=== PATIENT | female | born 1950 | race Caucasian/White ===

== ENCOUNTER 2020-12-14 20:32 | Inpatient (IN) | payer MEDICAID ==
[~2020-12-14] VITALS: Ht 149.9 cm; Wt 51.7 kg
[2020-12-14 20:32] VITALS: BP 101/48
--- NOTE | 2020-12-14 20:32 | NUR ---
RECEIVED IN BED 10 VIA AMBULANCE/ ALS FROM [facility] WITH C/O RESPIRATORY DISTRESS AND INCREASED HR. PT VENTILATED PER AMBU BAG VIA TRACH. UPON ARRIVAL ATTACHED TO VENT WITH PREVIOUS SETTIONGS. FI02 100%, VT 400 CC PEEP 8 CM. SUCTIONED LARGE AMOUNT TENACIOUS SPUTUM. SKIN IS COOL PALE AND DIAPHORETIC. G-TUBE NOTED MID ABDOMEN. BILATERAL FOOT DROP NOTED. ATTACHED TO CM = ST
--- NOTE | 2020-12-14 20:32 | NUR ---
PT JENN ALS. TAKEN TO BED 10
[2020-12-14] MEDS ORDERED: NACL 0.9% 1,000 ML IV SCH (20:35)
[2020-12-14] MEDS ORDERED: cefTRIAXone 1,000 MG in DEXT 5% MINI-BAG PLUS 50 ML IV ONE (20:35)
--- NOTE | 2020-12-14 20:52 | NUR ---
SABINO SWAB (COVID) COMPLETED. GIVEN TO LAB.
--- NOTE | 2020-12-14 21:00 | NUR ---
PT PLACED ON VENT W/ SETTINGS PROVIDED BY EMT/FACILITY OF AC/ 400 +8 f14 100%. PT HAS PATENT PORTEX 7 TRACH WHICH IS SECURED. VENT ALARMS ON & AUDIBLE, VENT PLUGGED INTO RED OUTLET, AND AMBU AT BEDSIDE WILL CONTINUE TO MONITOR Addendum: 12/14/20 at 2114 by CRISAA BEKAH JORGENSENDY SECRET/PLUGS WERE ALSO ASPIRATED FROM PT.
[2020-12-14 21:19] LABS: APPEARANCE,URINE CLOUDY (CLEAR); BILIRUBIN,URINE NEGATIVE (NEGATIVE); BLOOD, URINE 2+ (NEGATIVE); COLOR,URINE YELLOW (YELLOW); LEUKOCYTE ESTERASE ,URINE 3+ (NEGATIVE); NITRITE, URINE NEGATIVE (NEGATIVE); UGLUCOSE NEGATIVE (NEGATIVE)
--- NOTE | 2020-12-14 21:30 | NUR ---
LABS DRAWN AND COMPLETED.
[2020-12-14 21:32] LABS: WBC,URINE 20-60 /HPF (0-5); YEAST,URINE Moderate /HPF (None Seen)
[2020-12-14 21:33] LABS: CALCIUM OXALATE CRYSTALS,UR 0-5 /HPF (None Seen); URINE AMORPHOUS URATE 1+ /HPF (None Seen)
[2020-12-14] MEDS ORDERED: METO-485 GT/PO (21:44)
[2020-12-14] MEDS ORDERED: SCOP1PAT TP (21:44)
[2020-12-14] MEDS ORDERED: MAGN400S60 GT/PO (21:44)
[2020-12-14] MEDS ORDERED: METO25TA GT/PO (21:44)
[2020-12-14] MEDS ORDERED: ASCO-786 GT/PO (21:44)
[2020-12-14] MEDS ORDERED: ONDA4TAB GT/PO (21:44)
[2020-12-14] MEDS ORDERED: MELA3TER PO (21:44)
[2020-12-14] MEDS ORDERED: COL100L GT (21:44)
[2020-12-14] MEDS ORDERED: ZINC50TA76 PO (21:44)
[2020-12-14 21:52] LABS: BASOPHILS # (AUTO) 0.1 K/uL (0.00-0.22); BASOPHILS % (AUTO) 0.6 % (0.0-2.0); EOSINOPHILS # (AUTO) 0.4 K/uL (0-0.4); EOSINOPHILS % (AUTO) 2.8 % (0.0-4.0); HEMATOCRIT 31.5 % (36-48); LYMPHOCYTES # (AUTO) 2.3 K/uL (2.5-16.5); LYMPHOCYTES % (AUTO) 16.3 % (20.5-51.1); MEAN CORPUSCULAR HEMOGLOBIN 27 pg (27-31); MEAN CORPUSCULAR HGB CONC 32 g/dL (33-37); MEAN CORPUSCULAR VOLUME 84.1 fL (80-94); MONOCYTES # (AUTO) 1.2 K/uL (0.8-1.0); MONOCYTES % (AUTO) 8.4 % (1.7-9.3); NEUTROPHILS # (AUTO) 10.3 K/uL (1.8-7.7); NEUTROPHILS % (AUTO) 71.9 % (42.2-75.2); PLATELET COUNT (AUTO) 462 K/uL (140-450); RED BLOOD CELL COUNT(AUTO) 3.74 MIL/uL (4.20-5.40); RED CELL DISTRIBUTION WIDTH 17.3 % (11.6-13.7); WHITE BLOOD COUNT (AUTO) 14.4 K/uL (4.8-10.8)
--- NOTE | 2020-12-14 21:55 | NUR ---
SPOKE WITH SON ( CHANTELL ) [phone]
[2020-12-14 22:04] LABS: ALBUMIN 3.2 g/dL (3.4-5.0); CARBON DIOXIDE 35.3 mmol/L (21-32); CREATININE 0.9 mg/dL (0.6-1.3); POTASSIUM 4.3 mmol/L (3.5-5.1); TOTAL BILIRUBIN 0.2 mg/dL (0.0-1.0)
[2020-12-14] MEDS ORDERED: cefTRIAXone 1,000 MG VIAL ONE (22:04)
--- NOTE | 2020-12-14 22:10 | NUR ---
PT. APPEARANCE CHANGE, WITH DECREASED ALERTNESS. RESPIRATIONS APPEAR LABORED. PT. IS COOL AND DIAPHORETIC.
--- NOTE | 2020-12-14 22:14 | NUR ---
Respiratory Therapist at bedside for respiratory intervention.
[2020-12-14] MEDS ORDERED: FLUCONAZOLE 100 MG TAB GT SCH (22:35)
[2020-12-14] MEDS ORDERED: AZITHROMYCIN 250 MG in DEXTROSE 5% 250 ML IV SCH (23:00)
--- NOTE | 2020-12-14 23:00 | NUR ---
FAMILY AT BEDSIDE.
[2020-12-15] VITALS (7 sets, daily range): BP systolic 111–129; BP diastolic 54–68
--- NOTE | 2020-12-15 00:10 | NUR ---
PT. DAUGHTER LUIS SHRESTHA ([phone]) ASKED TO BE UPDATED IF ANY CHANGES WITH PT. CONDITION.
[2020-12-15] MEDS ORDERED: AZITHROMYCIN 500 MG INJ VIAL IV ONE (00:12)
[2020-12-15] MEDS: NACL 0.9% 1,000 ML IV SCH ×4 (00:56→09:31)
--- NOTE | 2020-12-15 02:00 | NUR ---
RT AT BEDSIDE.
--- NOTE | 2020-12-15 05:00 | NUR ---
PT. LAYING COMFORTABLY IN BED. BREATHING EVEN AND UNLABORED.
--- NOTE | 2020-12-15 05:15 | NUR ---
DELAY IN ADMINISTERING FLUIDS DUE TO PT. MOVING ARM CONSTRICTING FLOW OF FLUIDS.
--- NOTE | 2020-12-15 06:59 | NUR ---
KIERSTEN/RN NOCS NOTIFIED OF FIO2 CHANGE TO 40%
--- NOTE | 2020-12-15 06:59 | NUR ---
PATIENT CURRENTLY IN ED-10 TELEMETRY HOLD RECEIVED ON A [employer] R860 VENTILATOR PLUGGED INTO RED OUTLET TOLERATING WELL WITHOUT ANY ADVERSE REACTIONS NOTED AT THIS TIME TO A PORTEX DCT #7 AIRWAY SECURED WITH A PORTEX TRACH TIE CUFF PRESSURE CHECKED NOTED AMBU BAG AT BEDSIDE LOC ASLEEP RESTING COMFORTABLY EQUAL CHEST RISE AIRWAY PATENT SATURATION 100% ON FIO2 OF 50% PEEP 5cmH2O TITRATED FIO2 TO 40% KIERSTEN/RN NOCS NOTIFED OF FIO2 CHANGE
--- NOTE | 2020-12-15 07:15 | NUR ---
SPOKE WITH CHANTELL (SON) FOR UPDATE ON PT.
--- NOTE | 2020-12-15 07:16 | NUR ---
Report and continuation of care received from PARAS Mathew.
--- NOTE | 2020-12-15 07:16 | NUR ---
GIVEN REPORT TO PARAS CARSON. Transfer of care at this time.
--- NOTE | 2020-12-15 07:30 | NUR ---
Patient resting in position of comfort with both eyes closed. monitoring manager remains in place. Respirations even/unlabored at this time. Bed locked in lowest position, side rails x 2, call light in reach.
--- NOTE | 2020-12-15 07:48 | NUR ---
Spoke with Francesco over phone and provided room #. Requested for bag inspector to contact him when patient is situated in new room.
--- NOTE | 2020-12-15 08:00 | NUR ---
Report given to PARAS Han.
--- NOTE | 2020-12-15 08:09 | NUR ---
TRANSFERRED TO [facility] 124-B REMOVED FROM VENTILATOR PLACED ON SUPPLEMENTAL OXYGEN VIA E-TANK AT 15 LPM (PSI ADEQUATE FOR TRANSFER) TO AMBU BAG/HME/INLINE SUCTION CATHETER/TRACHEOSTOMY TUBE BAG DEPRESSION EVERY 6-8 SECONDS TOLERATED TRANSFER WELL WITHOUT COMPLICATIONS SATURATION 100% HR 96
--- NOTE | 2020-12-15 08:15 | NUR ---
Patient will be admitted to care of Dr. Gordon. Admited to Telemetry. Will go to room 124-B. Belongings list completed. Report to PARAS Han.
--- NOTE | 2020-12-15 08:15 | NUR ---
PT ARRIVED ON UNIT .
--- NOTE | 2020-12-15 09:06 | NUR ---
STABLE EQUAL CHEST RISE AIRWAY PATENT SATURATION 100% ON FIO2 OF 40% PEEP 5cmH2O DECREASED FIO2 TO 30% ISMA/RN NOTIFIED
--- NOTE | 2020-12-15 09:23 | NUR ---
PATIENT HAS BEEN SCREENED AND CATEGORIZED HIGH NUTRITION RISK. PATIENT WILL BE SEEN WITHIN 1-2 DAYS OF ADMISSION. 12/15/20-12/16/[address]
[2020-12-15] MEDS ORDERED: MAG SULF 2000 MG/WATER PREMIX 50 ML IV PRN (09:25)
[2020-12-15] MEDS ORDERED: ACETAMINOPHEN 325 MG TAB PO PRN (09:25)
[2020-12-15] MEDS ORDERED: LORazepam 2 MG/ML VIAL IM/IVP PRN (09:25)
[2020-12-15] MEDS ORDERED: HYDROcodone/APAP 5/325 MG 1 TAB TAB PO PRN (09:25)
[2020-12-15] MEDS ORDERED: DOCUSATE SODIUM 100 MG GELCAP PO PRN (09:25)
[2020-12-15] MEDS ORDERED: MORPHINE SULFATE 2 MG/ML SYR IVP PRN (09:25)
[2020-12-15] MEDS ORDERED: METOCLOPRAMIDE 10 MG TAB GT SCH (09:25)
[2020-12-15] MEDS ORDERED: ONDANSETRON 4 MG/2 ML VIAL IM/IVP PRN (09:25)
[2020-12-15] MEDS ORDERED: POTASSIUM CHLORIDE 20% 40 MEQ/15 ML UDC PO PRN (09:25)
--- NOTE | 2020-12-15 09:26 | NUR ---
MEDICATIONS GIVEN PER MD ORDER. PT EDUCATED AND NODDED UNDERSTANDING. PT REFUSED TELEPHOTO INSTALLER. PT ORIENTED TO ROOM AND HOSPITAL RULES. PT NODDED UNDERSTANDING. CALL LIGHT WITHIN REACH
[2020-12-15] MEDS ORDERED: MAGNESIUM HYDROXIDE 2400 MG/30 ML UDC GT SCH (09:57)
[2020-12-15] MEDS ORDERED: METOPROLOL 50 MG TAB GT SCH (09:58)
[2020-12-15] MEDS ORDERED: ASCORBIC ACID 500 MG TAB PO SCH (10:05)
[2020-12-15] MEDS ORDERED: ZINC SULF 220 MG CAP PO SCH (10:15)
[2020-12-15 10:38] LABS: BASOPHILS # (AUTO) 0.1 K/uL (0.00-0.22); BASOPHILS % (AUTO) 0.7 % (0.0-2.0); EOSINOPHILS # (AUTO) 0.6 K/uL (0-0.4); EOSINOPHILS % (AUTO) 3.7 % (0.0-4.0); HEMATOCRIT 24.9 % (36-48); HEMOGLOBIN 7.9 g/dL (12.0-16.0); LYMPHOCYTES # (AUTO) 3.2 K/uL (2.5-16.5); LYMPHOCYTES % (AUTO) 20.9 % (20.5-51.1); MEAN CORPUSCULAR HEMOGLOBIN 27 pg (27-31); MEAN CORPUSCULAR HGB CONC 32 g/dL (33-37); MEAN CORPUSCULAR VOLUME 83.9 fL (80-94); MONOCYTES % (AUTO) 6.9 % (1.7-9.3); NEUTROPHILS # (AUTO) 10.3 K/uL (1.8-7.7); NEUTROPHILS % (AUTO) 67.8 % (42.2-75.2); PLATELET COUNT (AUTO) 313 K/uL (140-450); RED BLOOD CELL COUNT(AUTO) 2.97 MIL/uL (4.20-5.40); RED CELL DISTRIBUTION WIDTH 16.7 % (11.6-13.7); WHITE BLOOD COUNT (AUTO) 15.2 K/uL (4.8-10.8)
[2020-12-15 10:56] LABS: PROTHROMBIN TIME 10.2 secs (10.8-13.4)
[2020-12-15] MEDS ORDERED: SCOPOLAMINE 1.5 MG/72 HR PATCH TD SCH (11:00)
[2020-12-15 11:01] LABS: ALBUMIN 2.6 g/dL (3.4-5.0); CARBON DIOXIDE 28.7 mmol/L (21-32); CHOL/HDL RATIO 5.4 (1-4.5); CREATININE 0.8 mg/dL (0.6-1.3); MAGNESIUM 1.8 mg/dL (1.8-2.4); PHOSPHORUS 2.8 mg/dL (2.5-4.9); THYROID STIMULATING HORMONE 0.78 uIU/mL (0.34-3.74); TOTAL BILIRUBIN 0.2 mg/dL (0.0-1.0)
--- NOTE | 2020-12-15 11:08 | NUR ---
SON CHANTELL CALLED REGARDING MOTHERS CARE. HE STATES HE DOES NOT WANT MOTHER GIVEN SEDATION MEDICATION.
[2020-12-15 11:13] LABS: ANION GAP 10.9 (8-16); POTASSIUM 3.6 mmol/L (3.5-5.1)
--- NOTE | 2020-12-15 11:58 | NUR ---
PT. WITH LOW BROWN SCALE AT RISK, MAD TO BUTTOCKS AND PERINEAL , SKIN RED, INTACT CONTINUE TO FOLLOW PRESSURE INJURY PREVENTION INTERVENTIONS. -APPLY Z GUARD TO BUTTOCKS AND PERINEAL BID AND PRN IF SOILING -TURN AND REPOSITION PATIENT Q 2H -ASSESS AND MONITOR SKIN CONDITION DURING POSITION CHANGE -OFFLOAD BILATERAL HEELS BY PLACING PILLOWS UNDER CALVES AT ALL TIMES, UNLESS OTHERWISE CONTRAINDICATED -PRESSURE REDISTRIBUTION BY PLACING PILLOWS AND OFFLOADING SACRALCOCCYX -KEEP SKIN CLEAN AND DRY AT ALL TIMES.
[2020-12-15] MEDS ORDERED: ONDANSETRON 4 MG TAB GT SCH (12:00)
--- NOTE | 2020-12-15 13:00 | NUR ---
PT GOT DIET ORDER. JEVITY 1.2 AT 60, 200 FLUSH Q 6
--- NOTE | 2020-12-15 13:04 | NUR ---
RECEIVED FNS REFERRAL FOR TUBE FEEDING.
--- NOTE | 2020-12-15 13:26 | NUR ---
STABLE RESPONSIVE GOOD CHEST RISE DEEP TRACHEAL SUCTION FOR LARGE SEMI THICK BARRIENTOS SECRETIONS AIRWAY PATENT SPUTUM CULTURE OBTAINED
[2020-12-15] MEDS ORDERED: NON-FORMULARY ITEM (Melatonin (Melatonin) 1 TAB) PO SCH (17:00)
[2020-12-15] MEDS: MELATONIN 3 MG TAB PO SCH (17:20)
--- NOTE | 2020-12-15 17:22 | NUR ---
MEDICATIONS GIVEN PER MD ORDER. PT EDUCATED AND NODDED. TALKED TO FAMILY MEMBER.
--- NOTE | 2020-12-15 17:36 | NUR ---
STABLE NO EVIDENCE OF PULMONARY DISTRESS NOTED EQUAL CHEST RISE AIRWAY PATENT
--- NOTE | 2020-12-15 17:58 | NUR ---
PT RESTING IN BED . NO S/S OF DISTRESS AT THIS TIME
--- NOTE | 2020-12-15 19:05 | NUR ---
PT ENDORSED TO E LEARNING DESIGNER RN. PT STABLE
[2020-12-15] MEDS ORDERED: VANCOMYCIN PER PHARMACY MC PRN (19:15)
--- NOTE | 2020-12-15 19:15 | NUR ---
RECEIVED BEDSIDE REPORT FROM DAY SHIFT NURSE FOR CONTINUITY OF CARE. PT IS AWAKE AND ALERT. RESPONDING APPROPRIATELY TO QUESTIONS BY NODDING. PT IS MOHAWK SPEAKING. TRACH TO VENT WITH NO RESPIRATORY DISTRESS NOTED. VENT SETTINGS; FIO2 24%, PEEP 5, VT 400, RT 14. BREATHING IS UNLABORED. SR ON TELE MONITORING. G TUBE FEEDING RUNNING JEVITY 1.2 AT 60 ML PER HOUR PER ORDER WITH WATER FLUSHES. SKIN IS WARM, DRY, AND INTACT. IV IS IN THE RIGHT AC 20 GAUGE AND LEFT AC 18 GAUGE RUNNING NS AT 60 ML PER HOUR PER ORDER. PT IS STABLE AT THIS TIME. PLAN OF CARE DISCUSSED.
[2020-12-15] MEDS: METOPROLOL 50 MG TAB GT SCH (20:12)
[2020-12-15] MEDS ORDERED: VANCOMYCIN 1GM/DEXT 5% PREMIX 200 ML IV SCH (21:00)
[2020-12-15] MEDS ORDERED: ZOLPIDEM 5 MG TAB PO PRN (21:00)
[2020-12-15] MEDS ORDERED: VANCOMYCIN 1,000 MG VIAL ONE (21:25)
--- NOTE | 2020-12-15 21:30 | NUR ---
PT IS AWAKE AND ALERT. ON TRACH TO VENT WITH BREATHING UNLABORED. PT WAS REPOSITIONED AND PILLOWS PLACED UNDERNEATH EXTREMITIES TO OFFSET PRESSURE. IV FLUIDS ARE INFUSING ORDERED. ORAL CARE WAS PROVIDED. PT TOLERATED THIS WELL. G TUBE RESIDUAL IS LESS THAN 5 ML. PT TOLERATING FEEDING WELL. WILL CONTINUE TO MONITOR.
--- NOTE | 2020-12-15 23:30 | NUR ---
PT ASLEEP. TRACH TO VENT WITH O2 SAT AT 99%. NO RESPIRATORY DISTRESS NOTED. NO COUGHING OR SOB. NO PAIN NOTED AT THIS TIME. PT IS STABLE.
[2020-12-16] VITALS: BP 115/61
[2020-12-16] MEDS ORDERED: PIPERACILLIN/TAZOBACTAM 3.375 GM VIAL IV ONE ×2 (00:21→05:27)
[2020-12-16] MEDS: NACL 0.9% 1,000 ML IV SCH ×2 (00:24→18:34)
[2020-12-16] MEDS: PIPERACILLIN/TAZOBACTAM 3.375 GM in DEXTROSE 5% 50 ML IV SCH ×5 (00:24→23:21)
--- NOTE | 2020-12-16 01:22 | NUR ---
PT IS AWAKE AND COUGHING. PT WAS SUCTIONED THROUGH TRACH. WHITE, PINK TINGED SECRETIONS WERE EXPELLED, SMALL IN AMOUNT. PT TOLERATED THIS WELL. O2 SAT IS 98%. PT IS STABLE. NO DISTRESS NOTED.
--- NOTE | 2020-12-16 03:00 | NUR ---
PT IS ASLEEP. NO RESPIRATORY DISTRESS NOTED. BREATHING IS UNLABORED ON TRACH TO VENT. IV FLUIDS ARE INFUSING. G TUBE RESIDUAL IS LESS THAN 5 ML. HOWELL CATH IS INTACT AND DRAINING YELLOW, CLEAR URINE. WILL CONTINUE TO MONITOR.
[2020-12-16 04:00] VITALS: BP 106/56
--- NOTE | 2020-12-16 04:05 | NUR ---
RT AT BEDSIDE PROVIDING TRACH CARE. PT TOLERATING THE CHANGING WELL. NO RESPIRATORY DISTRESS NOTED. O2 SAT IS 99%. PT IS STABLE.
--- NOTE | 2020-12-16 04:25 | NUR ---
DECK SPECIALIST, PRABHJOT, AT BEDSIDE DRAWING MORNING LABS.
--- NOTE | 2020-12-16 04:43 | NUR ---
PT REMAINS ON VENT WITH PORTEX 7 TRACH SECURED. TRACH CARE HAS BEEN COMPLETED. NO CHANGES HAVE BEEN MADE TO VENT AND REMAINS ON SETTINGS RECEIVED ON AC/VC 400 +5, f14 24%. VENT ALARMS REMAIN ON AND AUDIBLE W/ AMBU AT BEDSIDE. VENT REMAINS PLUGGED INTO RED OUTLET. WILL CONTINUE TO MONITOR AND ENDORSE TO DAY SHIFT
--- NOTE | 2020-12-16 05:32 | NUR ---
ZOSYN ABX STARTED. MEDICATION EDUCATION WAS PROVIDED. BREATHING IS UNLABORED ON TRACH TO VENT. O2 SAT IS 98%. PT IS STABLE.
[2020-12-16 05:34] LABS: BASOPHILS # (AUTO) 0.1 K/uL (0.00-0.22); BASOPHILS % (AUTO) 0.9 % (0.0-2.0); EOSINOPHILS # (AUTO) 0.5 K/uL (0-0.4); EOSINOPHILS % (AUTO) 4.8 % (0.0-4.0); HEMATOCRIT 23.2 % (36-48); HEMOGLOBIN 7.6 g/dL (12.0-16.0); LYMPHOCYTES % (AUTO) 27.7 % (20.5-51.1); MEAN CORPUSCULAR HEMOGLOBIN 27 pg (27-31); MEAN CORPUSCULAR HGB CONC 33 g/dL (33-37); MEAN CORPUSCULAR VOLUME 82.8 fL (80-94); MONOCYTES # (AUTO) 0.9 K/uL (0.8-1.0); MONOCYTES % (AUTO) 8.4 % (1.7-9.3); NEUTROPHILS # (AUTO) 6.3 K/uL (1.8-7.7); NEUTROPHILS % (AUTO) 58.2 % (42.2-75.2); PLATELET COUNT (AUTO) 279 K/uL (140-450); RED BLOOD CELL COUNT(AUTO) 2.81 MIL/uL (4.20-5.40); RED CELL DISTRIBUTION WIDTH 17.2 % (11.6-13.7); WHITE BLOOD COUNT (AUTO) 10.8 K/uL (4.8-10.8)
[2020-12-16 05:35] LABS: ANION GAP 8.4 (8-16); CARBON DIOXIDE 28.3 mmol/L (21-32); CREATININE 0.8 mg/dL (0.6-1.3); POTASSIUM 3.7 mmol/L (3.5-5.1)
[2020-12-16 05:39] LABS: MAGNESIUM 1.8 mg/dL (1.8-2.4); PHOSPHORUS 2.5 mg/dL (2.5-4.9)
--- NOTE | 2020-12-16 07:10 | NUR ---
ENDORSED PT TO DAY SHIFT NURSE FOR CONTINUITY OF CARE. PT IS AWAKE AND ALERT AT THIS TIME. O2 SAT IS 99%. PT IS STABLE. PLAN OF CARE DISCUSSED.
--- NOTE | 2020-12-16 07:14 | NUR ---
RECEIVED REPORT FROM NIGHT NURSE PATIENT IS AAOX2-3, TRACH TO VENT FIO2 24, TV 400, PEEP 5, RATE 14, TUBE FEEDING JEVITY 1.2 AT 60 MLS/HR 200 Q6H WATER FLUSH, SKIN INTACT WITH INCONTINENT DERMATITIS AND IV INTACT ON LEFT AC AND RIGHT AC. WITH BILATERAL HEEL PROTECT. SAFETY MEASURES IN PLACE AND CALL LIGHT WITHIN REACH. WILL CONTINUE TO MONITOR.
[2020-12-16 08:00] VITALS: BP 132/46
[2020-12-16] MEDS: DOCUSATE 100 MG/10 ML UDC GT SCH (08:15)
[2020-12-16] MEDS: METOPROLOL 50 MG TAB GT SCH ×2 (08:15→20:35)
[2020-12-16] MEDS: ZINC SULF 220 MG CAP PO SCH (08:15)
[2020-12-16] MEDS: ASCORBIC ACID 500 MG TAB PO SCH (08:15)
[2020-12-16] MEDS: MAGNESIUM HYDROXIDE 2400 MG/30 ML UDC GT SCH (08:16)
--- NOTE | 2020-12-16 08:26 | NUR ---
MEDICATION DUE GIVEN CHECK VITAL SIGNS PRIOR TO MEDICATION BP 132/46 NC 86 NO RESIDUAL VOLUME PT TOLERATED WELL AND PATIENT IS CALM AND ALERT. NO DISTRESS NOTED. WILL CONTINUE TO MONITOR.
[2020-12-16] MEDS ORDERED: ZINC PO SCH (09:00)
[2020-12-16] MEDS ORDERED: ASCORBIC ACID GT/PO SCH (09:00)
--- NOTE | 2020-12-16 10:00 | NUR ---
MADE ROUNDS CHANGED PATIENT GOWN AND DID A BED BATH WITH THE VICE PRESIDENT SAFETY. PT IS STABLE AND NO DISTRESS NOTED SUCTIONED AND TOLERATED WELL.
[2020-12-16 12:00] VITALS: BP 137/73
[2020-12-16 12:08] LABS: T4 (THYROXINE) 6.8 ug/dL (4.5-12.0)
--- NOTE | 2020-12-16 14:00 | NUR ---
MADE ROUNDS AND SUCTIONED PATIENT NEEDED.
--- NOTE | 2020-12-16 14:39 | NUR ---
12/16/20 RD INITIAL ASSESSMENT COMPLETED PLEASE REFER TO NUTRITION ASSESSMENT UNDER CARE ACTIVITY FOR ESTIMATED NUTRITIONAL NEEDS. 1. CONTINUE JEVITY 1.2 @ 60 ML/HR X 24 HR; FLUSH OF 200 ML Q6H -THIS WILL PROVIDE 1440 ML OF VOLUME, 1728 KCAL AND 80 GM OF PROTEIN, MEETING 100% OF KCAL AND PROTEIN NEEDS. 2. RD TO FOLLOW-UP 2-3 DAYS, HIGH RISK AMY FLOWER RD
[2020-12-16 16:00] VITALS: BP 147/79
[2020-12-16] MEDS: MELATONIN 3 MG TAB PO SCH (17:06)
--- NOTE | 2020-12-16 17:17 | NUR ---
MEDICATION DUE GIVEN AND CHANGED TUBE FEEDING JEVITY 1.2 AT 60 WATERFLUSH 200 ML Q6H. INFUSING WELL.
--- NOTE | 2020-12-16 19:15 | NUR ---
ENDORSED TO NIGHT NURSE FOR CONTINUITY OF CARE. PT IS STABLE.
--- NOTE | 2020-12-16 19:20 | NUR ---
ENDORSED TO NIGHT NURSE FOR CONTINUITY OF CARE. PT IS STABLE.
--- NOTE | 2020-12-16 19:25 | NUR ---
RECEIVED BEDSIDE REPORT FROM DAY SHIFT NURSE FOR CONTINUITY OF CARE. PT IS AWAKE AND ALERT. RESPONDING APPROPRIATELY BY NODDING. TRACH TO VENT WITH BREATHING UNLABORED. VENT SETTINGS FIO2 24%, VT 400, PEEP 5, RT 14. NO RESPIRATORY DISTRESS NOTED. SR ON TELE MONITORING. HOWELL CATH IN PLACE DRAINING CLEAR, YELLOW URINE. INCONTINENT DERMATITIS PRESENT. SKIN IS WARM, DRY, AND INTACT. IV IS IN THE LEFT AC 18 GAUGE AND RIGHT AC 20 GAUGE. FLUIDS RUNNING ARE NS AT 60 ML PER HOUR PER ORDER. PLAN OF CARE DISCUSSED. PT IS STABLE AT THIS TIME.
[2020-12-16 20:00] VITALS: BP 122/45
[2020-12-16] MEDS: FLUCONAZOLE 100 MG TAB GT SCH (20:35)
[2020-12-16] MEDS ORDERED: VANCOMYCIN 1,000 MG in DEXTROSE 5% 250 ML IV SCH (21:00)
--- NOTE | 2020-12-16 21:27 | NUR ---
PT WAS REPOSITIONED. DIAPER WAS CHANGED FOR SOILING. IV IS INFUSING ORDERED. G TUBE RESIDUAL IS LESS THAN 5 ML. G TUBE FEEDING IS INFUSING. PADDED BOOTS ON. PILLOWS USED TO OFFSET PRESSURE ON EXTREMITIES. TRACH TO VENT WITH NO RESPIRATORY DISTRESS NOTED. PT IS STABLE. DENIES PAIN.
--- NOTE | 2020-12-16 21:41 | NUR ---
Patient coughs intermittently and alarms vent. Pts understanding is limited due to language barrier. Alarms set based on pts breathing patterns. No distress noted with patient at this time. Tolerating vent settings well.
--- NOTE | 2020-12-16 23:21 | NUR ---
ZOSYN ABX STARTED. MEDICATION EDUCATION PROVIDED. PT NODDED TO ENSURE UNDERSTANDING. PT IS AWAKE AND LAYING IN SEMI FOWLERS POSITION. PT COUGHING AND ALARMING VENT. NO SUCTION NEEDED AT THIS TIME. O2 SAT IS 98% ON TRACH TO VENT. NO RESPIRATORY DISTRESS NOTED.
[2020-12-17] VITALS (7 sets, daily range): BP systolic 113–152; BP diastolic 63–94
--- NOTE | 2020-12-17 00:13 | NUR ---
SNUFF BLENDER AT BEDSIDE CHANGING PT. PT WAS REPOSITIONED. NO RESPIRATORY DISTRESS NOTED ON TRACH TO VENT. O2 SAT IS 99%. IV FLUIDS ARE INFUSING. BED IS IN THE LOWEST POSITION AND TV IS ON THE [employer] CHANNEL.
--- NOTE | 2020-12-17 02:17 | NUR ---
PT IS SLEEPING. NO RESPIRATORY DISTRESS NOTED ON TRACH TO VENT. NO COUGHING OR SOB. PT IS STABLE. WILL CONTINUE TO MONITOR. BED ALARM ON.
--- NOTE | 2020-12-17 04:12 | NUR ---
MADE ROUNDS ON PT. SHE IS SLEEPING IN SEMI FOWLERS POSITION. ON TRACH TO VENT WITH O2 SAT AT 99%. G TUBE FEEDING IS INFUSING ORDERED. IV IS PATENT AND INTACT. HOWELL IS IN PLACE DRAINING CLEAR,YELLOW URINE. PT IS STABLE. CALL LIGHT WITHIN REACH.
[2020-12-17] MEDS: PIPERACILLIN/TAZOBACTAM 3.375 GM in DEXTROSE 5% 50 ML IV SCH ×3 (05:23→18:10)
--- NOTE | 2020-12-17 05:44 | NUR ---
PT'S DIAPER WAS CHANGED AND PT WAS REPOSITIONED. PT HAD AN EPISODE OF ANXIETY AND WAS REDIRECTED. PT STARTED TO RELAX AND O2 SAT IS AT 100%. NO RESPIRATORY DISTRESS NOTED. PT WAS SUCTIONED THROUGH TRACH SECRETIONS WERE VISIBLY NOTICEABLE. SMALL AMOUNT OF CREAMY WHITE SECRETIONS WERE EXPELLED. PT IS STABLE WILL CONTINUE TO MONITOR.
[2020-12-17 05:53] LABS: BASOPHILS # (AUTO) 0.1 K/uL (0.00-0.22); BASOPHILS % (AUTO) 0.7 % (0.0-2.0); EOSINOPHILS # (AUTO) 0.6 K/uL (0-0.4); EOSINOPHILS % (AUTO) 8.8 % (0.0-4.0); HEMATOCRIT 22.1 % (36-48); HEMOGLOBIN 7.2 g/dL (12.0-16.0); LYMPHOCYTES % (AUTO) 27.8 % (20.5-51.1); MEAN CORPUSCULAR HEMOGLOBIN 27 pg (27-31); MEAN CORPUSCULAR HGB CONC 32 g/dL (33-37); MEAN CORPUSCULAR VOLUME 83.9 fL (80-94); MONOCYTES # (AUTO) 0.7 K/uL (0.8-1.0); MONOCYTES % (AUTO) 10.1 % (1.7-9.3); NEUTROPHILS # (AUTO) 3.8 K/uL (1.8-7.7); NEUTROPHILS % (AUTO) 52.6 % (42.2-75.2); PLATELET COUNT (AUTO) 244 K/uL (140-450); RED BLOOD CELL COUNT(AUTO) 2.64 MIL/uL (4.20-5.40); RED CELL DISTRIBUTION WIDTH 17.3 % (11.6-13.7); WHITE BLOOD COUNT (AUTO) 7.1 K/uL (4.8-10.8)
[2020-12-17 05:57] LABS: ANION GAP 9.2 (8-16); CARBON DIOXIDE 28.4 mmol/L (21-32); CREATININE 0.8 mg/dL (0.6-1.3); POTASSIUM 3.6 mmol/L (3.5-5.1)
[2020-12-17 06:15] LABS: MAGNESIUM 1.6 mg/dL (1.8-2.4); PHOSPHORUS 3.6 mg/dL (2.5-4.9)
--- NOTE | 2020-12-17 07:10 | NUR ---
RECEIVED BEDSIDE REPORT FROM PRINCIPAL STATISTICAL SCIENTIST NURSE ELISHA FOR CONTINUITY OF CARE. PATIENT IS AWAKE AND RESTING ON BED AT THIS TIME. PATIENT IS TRACH TO VENT, APHASIC, AROUSABLE TO NAME, SPEAKS SWISS, ABLE TO FOLLOW SOME COMMAND. RESPIRATION EVEN, UNLABORED ON TRACH TO VENT, AC/VC FIO2 24%, RATE 14, VT 400, PEEP 5, SPO2 AT 94% AT THIS TIME. FLACC 0. NO SIGNS OF ACUTE DISTRESS NOTED. IV ON RAC 20G, SALINE LOCK; LAC 218G, CLEAN AND INTACT, RUNNING NS AT 60 ML/HR. SKIN WARM TO TOUCH, INCONTINENT DERMATITIS ON PERINEAL AREA. ABDOMEN ROUND, SOFT, AND NON-DISTENDED. G-TUBE IN PLACE, RUNNING JEVITY AT 60 ML/HR AND WATER FLUSH 200 ML/Q4H. HOWELL IN PLACE, DRAINING WITH GRAVITY, YELLOW URINE IN BAG NOTED. SAFETY MEASURES IN PLACE. HOB ELEVATED 35 DEGREE, BED IN LOW POSITION, CALL LIGHT WITHIN REACH, FALL RISK PROTOCOL IN PLACE. DEMONSTRATED TO PATIENT ON HOW TO USE THE CALL LIGHT FOR ANY ASSISTANCE, AND PATIENT NODDED. I
--- NOTE | 2020-12-17 07:14 | NUR ---
ENDORSED PT TO DAY SHIFT NURSE FOR CONTINUITY OF CARE. PT IS STABLE AT THIS TIME. TRACH TO VENT WITH O2 SAT AT 99%. PLAN OF CARE DISCUSSED.
[2020-12-17] MEDS: MAGNESIUM HYDROXIDE 2400 MG/30 ML UDC GT SCH (09:25)
[2020-12-17] MEDS: DOCUSATE 100 MG/10 ML UDC GT SCH (09:26)
[2020-12-17] MEDS: ZINC SULF 220 MG CAP PO SCH (09:26)
[2020-12-17] MEDS: METOPROLOL 50 MG TAB GT SCH ×2 (09:26→20:30)
[2020-12-17] MEDS: ASCORBIC ACID 500 MG TAB PO SCH (09:26)
--- NOTE | 2020-12-17 09:30 | NUR ---
CHECKED G-TUBE RESIDUAL RECEIVED 10 ML, ADMINISTERED AM SCHEDULED MEDS VIA G-TUBE AND SUBQ, MEDS EDUCATION PROVIDED, REINFORCEMENT NEEDED, FLUSHED BEFORE AND AFTER MEDS. ORAL CARE PROVIDED AND SUCTIONING 1X, RECEIVED WHITE MUCUS, PATIENT TOLERATED FAIR. PATIENT AWAKE AND RESTING ON BED. NO SIGNS OF ACUTE DISTRESS NOTED. SAFETY MEASURES IN PLACE. HOB ELEVATED 35 DEGREE, BED IN LOW POSITION, AND BED LOCKED.
--- NOTE | 2020-12-17 11:18 | NUR ---
ORAL CARE PROVIDED TO PATIENT, PATIENT TOLERATE WELL. PATIENT AWAKE AND RESTING ON BED. NO SIGNS OF ACUTE DISTRESS NOTED. SAFETY MEASURES IN PLACE.
[2020-12-17] MEDS ORDERED: ZOS3.375PM IV (11:32)
[2020-12-17] MEDS ORDERED: VANC250C9 PO (11:32)
[2020-12-17] MEDS: NACL 0.9% 1,000 ML IV SCH (12:12)
--- NOTE | 2020-12-17 12:12 | NUR ---
SCHEDULED ZOSYN GIVEN. MED EDUCATIONS PROVIDED TO PATIENT AND DAUGHTER ODETTE AT BEDSIDE. INFORMED ODETTE THAT PATIENT WILL BE TRANSFER BACK TO [facility] TODAY, ODETTE WAS AWARE. SAFETY MEASURES IN PLACE.
--- NOTE | 2020-12-17 12:34 | NUR ---
CALLED [facility] AND SPOKE WITH RADHA Franco RN, FULL REPORT GIVEN, ANSWERED ALL HER QUESTIONS, RADHA WAS AWARE PATIENT IS GOING TO TRANSFER BACK TO HER FACILITY, PENDING ON MANAGER MANAGED BACKUP SERVICES TIME, WILL CALL HER BACK ONCE FINALIZED MANAGER MANAGED BACKUP SERVICES TIME. WILL COPY CHART AND PREPARE DISCHARGE DOCUMENTS. PROVIDED CALL BACK NUMBER FOR FURTHER INFORMATION. Addendum: 12/17/20 at 1236 by Chasidy Chamorro RN RADHA Rivero RN
--- NOTE | 2020-12-17 12:53 | NUR ---
DC PLANNING: PATIENT [place] [facility] [place] [facility] FOLLOW Addendum: 12/17/20 at 1412 by Luz Boateng RN DC PLANNING: PATIENT IS GOING TO ROOM 4C [place] [facility] [place] TO GIVE REPORT [phone] ARRANGED TRANSPORT WITH [facility] PHOTOGRAPHER NEWS TIME 7PM NOTIFIED MOR CRAIN
--- NOTE | 2020-12-17 13:06 | NUR ---
MAG 1.6 FROM AM LAB, 2G MAG SULFATE PRN ADMINISTERED. Z-GUARD APPLIED. PATIENT TOLERATED WELL. PATIENT AWAKE AND RESTING ON BED. DAUGHTER ODETTE IS AT BEDSIDE. SAFETY MEASURES IN PLACE.
--- NOTE | 2020-12-17 16:22 | NUR ---
[place] [facility] [phone] AND SPOKE WITH RADHA Rivero, NOTIFIED THAT PATIENT WILL BE TRANSFER AT 1900 WITH [facility]. RADHA WAS AWARE.
[2020-12-17] MEDS: MELATONIN 3 MG TAB PO SCH (16:53)
--- NOTE | 2020-12-17 16:53 | NUR ---
SCHEDULED MELATONIN ADMINISTERED, FLUSHED BEFORE AND AFTER MED. PROVIDED ORAL CARE. PATIENT TOLERATED WELL. PATIENT AWAKE AND RESTING ON BED AT THIS TIME. NO SIGNS OF DISTRESS NOTED. SAFETY MEASURES IN PLACE.
--- NOTE | 2020-12-17 17:21 | NUR ---
HOWELL CATHETER DISCONTINUED.
--- NOTE | 2020-12-17 17:44 | NUR ---
DAUGHTER ODETTE AND SON IS VISITING PATIENT AT BEDSIDE. NO SIGNS OF ACUTE DISTRESS NOTED. SAFETY MEASURES IN PLACE.
--- NOTE | 2020-12-17 18:12 | NUR ---
SCHEDULED ZOSYN GIVEN. SON ROSI AND DAUGHTER ODETTE IS AT BEDSIDE. NO SIGNS OF ACUTE DISTRESS NOTED. AWAITING FOR [facility] TO FISHERIES MANAGEMENT BIOLOGIST. SAFETY MEASURES IN PLACE.
--- NOTE | 2020-12-17 19:02 | NUR ---
RECEIVED A CALL FROM [facility], AND TOLD THAT FACILITIES MANAGER WILL BE DELAY TO [phone]. WILL NOTIFY HARDBOARD SUPERVISOR.
--- NOTE | 2020-12-17 19:08 | NUR ---
ENDORSED PATIENT TO BEEF PLUCK TRIMMER NURSE CONCEPCION FOR CONTINUITY OF CARE. PATIENT AWAKE AND INTERACTING WITH SON ROSI AND DAUGHTER ODETTE AT BEDSIDE. DISCHARGE DOCUMENT PREPARED. AWAITING FOR [facility] TO TRANSFER PATIENT. PATIENT IS IN STABLE CONDITION. SAFETY MEASURES IN PLACE.
--- NOTE | 2020-12-17 19:10 | NUR ---
RECEIVED REPORT FROM ABDELRAHMAN RN DAYSHIFT NURSE AT BEDSIDE FOR CONTINUITY OF CARE, PT IN STABLE CONDITION. PT SITTING UP IN BED FAMILY AT BEDSIDE. SHE IS AWAKE AND ALERT AND A TRACH TO VENT STATING 02 AT 99% WITH ALL CURRENT VENT SETTINGS. HER GT TUBE IS INTACT FEEDING STOPPED DUE TO PT WAITING FOR TRANSPORT TO BE D/C'D BACK [place] [facility] [place]. SHE HAS 2 IV SITES INTACT AND SALINE LOCKED DUE TO PT WILL BE TRANSPORTED WITH IV SITES DUE TO PT WILL CONTINUE WITH IV ABT'S PER D/C ORDER. SHE HAS NO S/S OF PAIN OR DISTRESS NOTED. ALL ORDERED PRECAUTIONS IN PLACE.
--- NOTE | 2020-12-17 20:00 | NUR ---
[facility] HERE TO TRANSPORT PT. PT TRANSPORT TO [facility] [place] VIA GURNEY ALL D/C PAPERS AND BELONGINGS WITH PT V/S FOLLOWS: T 98.4 P 86 R 25 B/P 143/80 02 99% WITH ALL CURRENT SETTINGS.
[2020-12-17] MEDS: FLUCONAZOLE 100 MG TAB GT SCH (20:30)
[2020-12-17] MEDS ORDERED: Z-GUARD PASTE TP SCH (21:00)
[2020-12-18] MEDS ORDERED: SCOPOLAMINE 1.5 MG/72 HR PATCH TD SCH (09:00)
== END 2020-12-17 20:10 | DRG 720 ==
LOC: MED 20:32 → MTU 22:47
PROC: 5A1945Z Respiratory Ventilation, 24-96 Consecutive Hours (ICD-10-PCS; principal; 2020-12-14)
DX: A41.9 Sepsis, unspecified organism (principal); J96.21 Acute and chronic respiratory failure with hypoxia; J69.0 Pneumonitis due to inhalation of food and vomit; E43 Unspecified severe protein-calorie malnutrition; N17.9 Acute kidney failure, unspecified; Z93.0 Tracheostomy status; R13.11 Dysphagia, oral phase; I48.91 Unspecified atrial fibrillation; D63.8 Anemia in other chronic diseases classified elsewhere; J96.22 Acute and chronic respiratory failure with hypercapnia; B37.49 Other urogenital candidiasis; E86.0 Dehydration; I10 Essential (primary) hypertension; Z20.822 Contact with and (suspected) exposure to COVID-19; K59.09 Other constipation; G47.00 Insomnia, unspecified; E78.5 Hyperlipidemia, unspecified; Z93.1 Gastrostomy status; Z79.899 Other long term (current) drug therapy; Z68.23 Body mass index [BMI] 23.0-23.9, adult
CPT/HCPCS: 36415; 71045; 80048; 80053; 81001; 82140; 82150; 83036; 83605; 83690; 83735; 83880; 84100; 84134; 84436; 84443; 84484; 85025; 85610; 85730; 87040; 87070; 87081; 87086; 87205; 89220; 93005; 94002; 94003; 99285; J0456; J0696; J1644; J2543; J3370; J3475; J7060

== ENCOUNTER 2020-12-30 00:10 | Emergency (ER) | payer MEDICAID ==
[~2020-12-30] VITALS: Ht 149.9 cm; Wt 50.8 kg
[2020-12-30 00:10] VITALS: BP 150/55
[~2020-12-30 00:10] MED LIST: ASCO-786 GT/PO; COL100L GT; MAGN400S60 GT/PO; MELA3TER PO; METO-485 GT/PO; METO25TA GT/PO; ONDA4TAB GT/PO; SCOP1PAT TP; VANC250C9 PO; ZINC50TA76 PO; ZOS3.375PM IV
--- NOTE | 2020-12-30 00:10 | NUR ---
PT JENN ALS. TAKEN TO BED 8
[2020-12-30 00:16] VITALS: BP 150/55
--- NOTE | 2020-12-30 00:16 | NUR ---
PT RECIEVED IN ED AND PLACED ON VENT W/ SETTINGS PROVIDED BY EMT/SNF 400 +5 f14 28%. PT HAS A SECURED PATENT PORTEX 7 TRACH AND AMBU IS AT BEDSIDE. VENT IS PLUGGED INTO RED OUTLET W/ ALARMS ON AND AUDIBLE WILL CONTINUE TO MONITOR
--- NOTE | 2020-12-30 00:20 | NUR ---
70 YO/F BIBA s/p being found on the floor by staff face down w R arm bent back. Patient reports she was sitting on the chair and fell off. Patient denies hitting her head. Patient denies any pain or injuries. Patient A0X4, GCS 15, breathing even and unlabored, radial pulses +2, cap refil <3sec. Patient sitting in bed locked in lowest position, HOB elevated, x2 siderails for patient safety. NAD noted, will continue to monitor. pmh: Respiratory Failure Trach to vent , metabolic encephalopathy , htn, afib, anemia , gastrostomy nka
--- NOTE | 2020-12-30 01:46 | NUR ---
PT TAKEN TO CT
--- NOTE | 2020-12-30 01:46 | NUR ---
PT WAS TRANSPORTED TO CT AND BACK TO ED. PT MIRLANDE WELL W/ NO ADVERSE EVENTS
--- NOTE | 2020-12-30 01:48 | NUR ---
pt taken to CT via [place] with assist of Steffen Cabezas and ELECTRIC ACCOUNTING MACHINE OPERATOR
--- NOTE | 2020-12-30 01:51 | NUR ---
Vent settings as follows; VC Vt- 400 R 14 PEEP 5 FI02 28
--- NOTE | 2020-12-30 03:55 | NUR ---
Gave report to [facility] nurse prior to patient transfer back to [facility] [place].
--- NOTE | 2020-12-30 04:32 | NUR ---
[facility] CCT AT BEDSIDE
[2020-12-30 04:59] VITALS: BP 118/67
--- NOTE | 2020-12-30 04:59 | NUR ---
Patient discharged with v/s stable. Written and verbal after care instructions given and explained. Patient verbalized understanding. Ambulance Transport with to [facility]. All questions addressed prior to discharge. Advised to follow up with PMD.
--- NOTE | 2020-12-30 05:00 | NUR ---
PT TAKEN BY [facility] TRANSPORT TO [facility]
== END 2020-12-30 05:00 ==
LOC: MED 00:10
DX: S09.90XA Unspecified injury of head, initial encounter (principal); Z79.899 Other long term (current) drug therapy; W19.XXXA Unspecified fall, initial encounter; Y93.89 Activity, other specified; Y92.89 Other specified places as the place of occurrence of the external cause; Y99.8 Other external cause status
CPT/HCPCS: 70450; 99285

== ENCOUNTER 2021-03-27 11:31 | Inpatient (IN) | payer MEDICAID, SELFPAY ==
[~2021-03-27] VITALS: Ht 149.9 cm; Wt 51.3 kg
[~2021-03-27 11:31] MED LIST changes: +SCOP0.333 TP; -SCOP1PAT TP
--- NOTE | 2021-03-27 11:33 | NUR ---
Patient assisted from JESSICA escoto onto bed. RT at bedside. RN evaluating patient at bedside.
[2021-03-27 11:35] VITALS: BP 137/71
--- NOTE | 2021-03-27 11:40 | NUR ---
70 Y/O FEMALE BIBA FROM [facility] FOR C/O SOB DESATURATING IN 80'S AT FACILITY. ALSO NAUSEA/VOMITING. 100% ON TRACH TO VENT. NO SOB NOTED. MEDHX: TRACH TO VENT, COVID, HTN, COPD, GERD, GTUBE NKA
[2021-03-27 11:47] VITALS: BP 146/77
--- NOTE | 2021-03-27 11:47 | NUR ---
RCV'D PT ON MECHANICAL VENTILATION WITH PORTEX [address] TRACH IS IN PLACE AND SECURED WITH TRACH TIE. SETTINGS CHARTED AND SETTINGS PER [facility]. NO SOB OR DISTRESS NOTED. PT IS AWAKE AND ALERT. KINYARWANDA SPEAKING ONLY. BS RHONCHI. VENT CONNECTED TO RED OUTLET. ALARMS AUDIBLE. AMBU BAG AT BEDSIDE. WILL CONTINUE TO MONITOR PATIENT.
--- NOTE | 2021-03-27 12:33 | NUR ---
PER ERMD 12 LEAD WAS DONE AND CAME BACK NSR AT 73 HR.
[2021-03-27 13:29] LABS: BASOPHILS # (AUTO) 0.1 K/uL (0.00-0.22); BASOPHILS % (AUTO) 0.5 % (0.0-2.0); EOSINOPHILS # (AUTO) 0.2 K/uL (0-0.4); EOSINOPHILS % (AUTO) 1.7 % (0.0-4.0); HEMATOCRIT 30.4 % (36-48); HEMOGLOBIN 9.8 g/dL (12.0-16.0); LYMPHOCYTES # (AUTO) 1.5 K/uL (2.5-16.5); LYMPHOCYTES % (AUTO) 13.3 % (20.5-51.1); MEAN CORPUSCULAR HEMOGLOBIN 27 pg (27-31); MEAN CORPUSCULAR HGB CONC 32 g/dL (33-37); MEAN CORPUSCULAR VOLUME 84.9 fL (80-94); MONOCYTES # (AUTO) 0.5 K/uL (0.8-1.0); NEUTROPHILS # (AUTO) 9.3 K/uL (1.8-7.7); NEUTROPHILS % (AUTO) 80.5 % (42.2-75.2); PLATELET COUNT (AUTO) 361 K/uL (140-450); RED BLOOD CELL COUNT(AUTO) 3.58 MIL/uL (4.20-5.40); RED CELL DISTRIBUTION WIDTH 14.3 % (11.6-13.7); WHITE BLOOD COUNT (AUTO) 11.6 K/uL (4.8-10.8)
[2021-03-27 13:43] LABS: ALBUMIN 3.2 g/dL (3.4-5.0); ANION GAP 10.2 (8-16); CARBON DIOXIDE 32.8 mmol/L (21-32); TOTAL BILIRUBIN 0.2 mg/dL (0.0-1.0)
--- NOTE | 2021-03-27 14:30 | NUR ---
Patient awake, appears to be resting comfortably in bed. Vital Signs within normal limits. Respirations even and unlabored. Will continue to monitor.
[2021-03-27] MEDS ORDERED: NACL 0.9% 1,000 ML IV ONE (15:35)
--- NOTE | 2021-03-27 16:30 | NUR ---
Patient awake, appears to be resting comfortably in bed. Vital Signs within normal limits. Respirations even and unlabored. Will continue to monitor.
[2021-03-27 16:40] VITALS: BP 142/35
[2021-03-27] MEDS ORDERED: HYDROcodone/APAP 5/325 MG 1 TAB TAB PO PRN (16:40)
[2021-03-27] MEDS ORDERED: POTASSIUM CHLORIDE 40 MEQ, LIDOCAINE MPF 1% 25 MG in NACL 0.9% 250 ML IV PRN (16:40)
[2021-03-27] MEDS ORDERED: MORPHINE SULFATE 2 MG/ML SYR IVP PRN (16:40)
[2021-03-27] MEDS ORDERED: MAGNESIUM HYDROXIDE 2400 MG/30 ML UDC GT PRN (16:40)
[2021-03-27] MEDS ORDERED: MELATONIN 3 MG TAB GT PRN (16:40)
[2021-03-27] MEDS ORDERED: MAG SULF 2000 MG/WATER PREMIX 50 ML IV PRN (16:40)
[2021-03-27] MEDS ORDERED: NACL 0.9% 1,000 ML IV SCH (16:40)
[2021-03-27] MEDS ORDERED: SODIUM PHOS / POTASSIUM PHOS 1 PKT PDR PO PRN (16:40)
[2021-03-27] MEDS ORDERED: ONDANSETRON 4 MG/2 ML VIAL IM/IVP PRN (16:40)
[2021-03-27] MEDS ORDERED: ACETAMINOPHEN 325 MG TAB PO PRN (16:40)
[2021-03-27 17:24] LABS: MAGNESIUM 2.3 mg/dL (1.8-2.4); PHOSPHORUS 4.1 mg/dL (2.5-4.9)
--- NOTE | 2021-03-27 18:00 | NUR ---
# 16 FR Urinary catheter inserted utilizing sterile technique. Immediate return of 30 ml YELLOW urine noted. Urine sample collected and sent to lab. Pt tolerated procedure WELL.
[2021-03-27 18:51] LABS: COLOR,URINE YELLOW (YELLOW)
[2021-03-27 18:52] LABS: APPEARANCE,URINE CLOUDY (CLEAR)
[2021-03-27 18:53] LABS: BILIRUBIN,URINE NEGATIVE (NEGATIVE); UGLUCOSE NEGATIVE (NEGATIVE)
[2021-03-27 18:54] LABS: BLOOD, URINE 2+ (NEGATIVE)
[2021-03-27 18:55] LABS: LEUKOCYTE ESTERASE ,URINE 3+ (NEGATIVE); NITRITE, URINE POSITIVE (NEGATIVE)
[2021-03-27 19:08] LABS: RBC,URINE 11-20 (MOD) /HPF (0-5); WBC,URINE TOO MANY TO COUNT /HPF (0-5)
--- NOTE | 2021-03-27 19:26 | NUR ---
Pt report given to KIERSTEN CRAIN. Transfer of care at this time.
--- NOTE | 2021-03-27 19:31 | NUR ---
SABINO COLLECTED AND WALKED TO LAB BY PARAS GOODE
--- NOTE | 2021-03-27 19:43 | NUR ---
PT. IN SUPINE POSITION, VOICES NO COMPLAINTS AT THIS TIME. NO DISTRESS NOTED. WILL CONT. TO MONITOR.
[2021-03-27 20:00] VITALS: BP 123/51
--- NOTE | 2021-03-27 20:15 | NUR ---
Patient will be admitted to care of DR. KIMBLE. Admitted to Telemetry Unit. Will go to room 108B. Belongings list completed. Report to PARAS Hilton.
--- NOTE | 2021-03-27 20:28 | NUR ---
PT. TAKEN TO TELEMETRY UNIT TO ROOM 108B VIA GURNEY, ACCOMPANIED BY EMT, RN AND RT. REPORT CALLED TO PARAS CAMP.
[2021-03-27 20:30] VITALS: BP 123/73
--- NOTE | 2021-03-27 20:30 | NUR ---
PATIENT WAS BROUGHT IN VIA GURNEY WITH ANIMATION CAMERA OPERATOR AND RT. PT IS AAOX4. UZBEK SPEAKING ONLY. RESPIRATIONS ARE EQUAL AND UNLABORED ON TRACH TO VENT. VENT SETTINGS: A/C PRVC FIO2 30% VT 500 RR 12 +5. SAT WELL 99% RR 19 PT ENDORSES C/C SOB AND PRODUCTIVE COUGH. DX RESP FAILURE AND PNA. SKIN IS INTACT. PT HX TRACH TO VENT SINCE JUL 2020. RECEIVED COVID VACCINE FROM [facility] [place] WHEN OR WHICH ONE. IV ON RAC 22G. MRSA SWAB OBTAINED AND SENT TO LAB. ORIENTED PATIENT TO ROOM, CALL LIGHT STAFF, AND VISITING HOURS. VSS. PATIENT WAS CLEANED AND REPOSITION FOR COMFORT. CALL LIGHT IS WITHIN REACH. WILL CONTINUE TO MONITOR.
--- NOTE | 2021-03-27 20:51 | NUR ---
2029 TRANSPORTED PATIENT FROM ER TO ROOM 108 ON VENT WITH NO INCIDENT. PT [id number] ON VENT AT THIS TIME
[2021-03-27] MEDS ORDERED: CRUSHER, PILL MC ONE (21:11)
[2021-03-27] MEDS: DOCUSATE 100 MG/10 ML UDC GT SCH (21:14)
--- NOTE | 2021-03-27 21:14 | NUR ---
PATIENT WITH NO GASTRIC RESIDUALS, STAR MEDICATIONS GIVEN PER ORDERS. ORAL CARE PROVIDED. HOB ELEVATED. SAFETY MEASURES ARE IN PLACE.
[2021-03-27] MEDS: METOPROLOL 50 MG TAB GT SCH (21:15)
--- NOTE | 2021-03-27 22:00 | NUR ---
ROUNDS MADE. PT SITTING IN BED. PT HAS PRODUCTIVE COUGH. ALL NEEDS MET. CALL LIGHT WITHIN REACH.
[2021-03-27 23:10] VITALS: BP 120/60
[2021-03-28] VITALS: BP 127/64
--- NOTE | 2021-03-28 00:32 | NUR ---
VITAL SIGNS ARE STABLE. ORAL CARE PROVIDED. PT TOLERATED WELL.ALL NEEDS MET.CALL LIGHT WITHIN REACH. WILL CONTINUE TO MONITOR.
--- NOTE | 2021-03-28 02:13 | NUR ---
PT ASLEEP IN BED. CALL LIGHT WITHIN REACH.
[2021-03-28 04:00] VITALS: BP 148/64
--- NOTE | 2021-03-28 05:37 | NUR ---
VITAL SIGNS ARE STABLE.SAFETY MEASURES IN PLACE. CALL LIGHT WITHIN REACH.
[2021-03-28 06:46] LABS: BASOPHILS % (AUTO) 0.5 % (0.0-2.0); EOSINOPHILS # (AUTO) 0.6 K/uL (0-0.4); HEMATOCRIT 26.7 % (36-48); HEMOGLOBIN 8.8 g/dL (12.0-16.0); LYMPHOCYTES # (AUTO) 2.5 K/uL (2.5-16.5); LYMPHOCYTES % (AUTO) 26.2 % (20.5-51.1); MEAN CORPUSCULAR HEMOGLOBIN 28 pg (27-31); MEAN CORPUSCULAR HGB CONC 33 g/dL (33-37); MEAN CORPUSCULAR VOLUME 84.5 fL (80-94); MONOCYTES # (AUTO) 0.7 K/uL (0.8-1.0); MONOCYTES % (AUTO) 7.8 % (1.7-9.3); NEUTROPHILS # (AUTO) 5.6 K/uL (1.8-7.7); NEUTROPHILS % (AUTO) 59.5 % (42.2-75.2); PLATELET COUNT (AUTO) 225 K/uL (140-450); RED BLOOD CELL COUNT(AUTO) 3.16 MIL/uL (4.20-5.40); RED CELL DISTRIBUTION WIDTH 14.3 % (11.6-13.7); WHITE BLOOD COUNT (AUTO) 9.5 K/uL (4.8-10.8)
[2021-03-28 07:04] LABS: ANION GAP 8.3 (8-16); CARBON DIOXIDE 34.1 mmol/L (21-32); POTASSIUM 3.4 mmol/L (3.5-5.1)
--- NOTE | 2021-03-28 07:14 | NUR ---
GAVE BEDSIDE REPORT TO DAY RN. PT ENDORSED IN STABLE CONDITION.
--- NOTE | 2021-03-28 07:14 | NUR ---
RECEIVED REPORT FROM SLEEP SCIENTIST NURSE. PATIENT SUPINE IN BED, HOB 30 DEGREES. BREATHING EVEN AND UNLABORED NO SIGNS OF ACUTE DISTRESS NOTED, TRACH TO VENT: ACPRVC 28% FIO2, VT 400, RR12, PEEP 5. AWAKE AND ALERT, ABLE TO MAKE NEEDS KNOWN, CALL LIGHT WITHIN REACH. RAC 20G INFUSING NS @ 40 ML/HR. SAFETY MEASURES IN PLACE.
[2021-03-28 08:00] VITALS: BP 139/67
--- NOTE | 2021-03-28 08:13 | NUR ---
PATIENT HAS BEEN SCREENED AND CATEGORIZED HIGH NUTRITION RISK. PATIENT WILL BE SEEN WITHIN 1-2 DAYS OF ADMISSION. 03/28/21 03/29/[address]
[2021-03-28] MEDS: PANTOPRAZOLE 40 MG INJ VIAL IVP SCH (09:00)
[2021-03-28] MEDS: METOPROLOL 50 MG TAB GT SCH ×2 (09:59→21:00)
[2021-03-28] MEDS: DOCUSATE 100 MG/10 ML UDC GT SCH ×2 (09:59→21:21)
[2021-03-28] MEDS: PIPERACILLIN/TAZOBACTAM 3.375 GM in DEXTROSE 5% 50 ML IV SCH ×3 (10:00→18:37)
--- NOTE | 2021-03-28 10:43 | NUR ---
03/28/21 RD INITIAL ASSESSMENT COMPLETED PLEASE REFER TO NUTRITION ASSESSMENT UNDER CARE ACTIVITY FOR ESTIMATED NUTRITIONAL NEEDS. 1. WHEN/IF MEDICALLY APPROPRIATE RECOMMEND JEVITY 1.2 @ GOAL RATE 55 ML/HR X 24 HR. BEGIN AT 20 ML/HR ADVANCE 10 ML Q6H TOLERATED ---THIS WILL PROVIDE 1584 KCAL AND 73.3 G PROTEIN, MEETING 100% OF ESTIMATED KCAL NEEDS AND 90% OF ESTIMATED KCAL NEEDS 2. RECOMMEND FWF [address] TO FOLLOW-UP 2-3 DAYS, HIGH RISK ANNIE RAMON RD
[2021-03-28] MEDS ORDERED: ALBUTEROL SULFATE/IPRATROPIU 3 ML SOL IH PRN (10:45)
[2021-03-28] MEDS: NACL 0.9% 500 ML IV SCH ×2 (11:18→19:14)
--- NOTE | 2021-03-28 11:20 | NUR ---
PATIENT CALM WITH DAUGHTER AT BESIDE, BREATHING EVEN AND UNLABORED ON DOCUMENTED VENT SETTINGS. NO SIGNS OF ACUTE DISTRESS NOTED.
[2021-03-28 12:00] VITALS: BP 132/64
[2021-03-28] MEDS: ALBUTEROL SULFATE/IPRATROPIU 3 ML SOL IH SCH ×2 (12:57→19:00)
[2021-03-28] MEDS: NACL 0.45% 1,000 ML IV SCH (13:21)
--- NOTE | 2021-03-28 15:28 | NUR ---
PATIENT CALM IN BED, NO SIGNS OF ACUTE DISTRESS NOTED. ALL NEEDS MET. WILL CONTINUE TO MONITOR.
[2021-03-28 16:00] VITALS: BP 118/48
--- NOTE | 2021-03-28 18:39 | NUR ---
PATIENT IN BED WITH DAUGHTER AT BEDSIDE. NO SIGNS OF ACUTE DISTRESS NOTED ON DOCUMENTED VENT SETTINGS. LOTION PROVIDED, AND APPLIED TO BLE.
--- NOTE | 2021-03-28 19:20 | NUR ---
RECEIVED REPORT FROM AUDREY RN FOR CONTINUITY OF CARE. PT SITTING UP AAO WITH DAUGHTER AT BEDSIDE. NO APPARENT S/S OF ACUTE DISTRESS. BREATHING EVEN AND UNLABORED ON TRACH TO VENT WITH O2 SAT OF 92%. POC AND WHITE COMMUNICATION BOARD UPDATED. BED IN LOW/LOCKED POSITION. CALL LIGHT WITHIN REACH. PT/DAUGHTER ENCOURAGED TO CALL FOR ANY NEEDS/ASSISTANCE. WILL CONTINUE TO MONITOR.
[2021-03-28 20:00] VITALS: BP 106/44
[2021-03-29] VITALS (7 sets, daily range): BP systolic 107–134; BP diastolic 40–64
[2021-03-29] MEDS: PIPERACILLIN/TAZOBACTAM 3.375 GM in DEXTROSE 5% 50 ML IV SCH ×4 (00:19→17:21)
[2021-03-29] MEDS: NACL 0.9% 500 ML IV SCH ×2 (03:25→12:11)
[2021-03-29 05:28] LABS: BASOPHILS % (AUTO) 0.4 % (0.0-2.0); EOSINOPHILS # (AUTO) 0.8 K/uL (0-0.4); HEMATOCRIT 27.5 % (36-48); LYMPHOCYTES # (AUTO) 1.6 K/uL (2.5-16.5); LYMPHOCYTES % (AUTO) 16.2 % (20.5-51.1); MEAN CORPUSCULAR HEMOGLOBIN 28 pg (27-31); MEAN CORPUSCULAR HGB CONC 33 g/dL (33-37); MEAN CORPUSCULAR VOLUME 85.4 fL (80-94); MONOCYTES # (AUTO) 0.6 K/uL (0.8-1.0); MONOCYTES % (AUTO) 6.1 % (1.7-9.3); NEUTROPHILS # (AUTO) 6.9 K/uL (1.8-7.7); NEUTROPHILS % (AUTO) 69.3 % (42.2-75.2); PLATELET COUNT (AUTO) 233 K/uL (140-450); RED BLOOD CELL COUNT(AUTO) 3.22 MIL/uL (4.20-5.40); RED CELL DISTRIBUTION WIDTH 14.2 % (11.6-13.7); WHITE BLOOD COUNT (AUTO) 9.9 K/uL (4.8-10.8)
[2021-03-29] MEDS: NACL 0.45% 1,000 ML IV SCH (05:50)
[2021-03-29 06:43] LABS: ANION GAP 14.2 (8-16); CARBON DIOXIDE 27.4 mmol/L (21-32); CHLORIDE 114 mmol/L (98-107); CREATININE 1.2 mg/dL (0.6-1.3); GLUCOSE 77 mg/dL (74-106); POTASSIUM 3.6 mmol/L (3.5-5.1); SODIUM SERUM 152 mmol/L (136-145); UREA NITROGEN, BLOOD 32 mg/dL (7-18)
--- NOTE | 2021-03-29 07:02 | NUR ---
REPORT GIVEN TO ESTELLA CRAIN FOR CONTINUITY OF CARE. PT SITTING UP AAOX2. NO APPARENT S/S OF ACUTE DISTRESS. BREATHING EVEN AND UNLABORED. BED IN LOW/LOCKED POSITION. CALL LIGHT WITHIN REACH. ALL NEEDS MET AT THIS TIME.
[2021-03-29] MEDS: ALBUTEROL SULFATE/IPRATROPIU 3 ML SOL IH SCH ×3 (07:12→20:45)
--- NOTE | 2021-03-29 07:49 | NUR ---
RECEIVED REPORT FROM NIGHT NURSE, PT CAME FOR SOB, NAUSEA, VOMITING. DIAGNOSIS RESPIRATORY FAILURE, PNA. PT HAS HX OF HTN, COPD, GERD. ALERT ORIENTED X2, SINUS RHYTHM, LAST BOWEL MOVEMENT ON , PT IS INCONTINENET. IVF 1/2 NS @ 60 ML/HR IV ACCESS RIGHT AC GAUGE 22. TRACH TO VENT PT. VENT SETTINGS AT THE MOMENT: FIO2 28 TIDAL VOLUME 400 PEAP 4 RR 12. HAS G TUBE FEEDING GLUCERNA 1.2 @ 40 ML/ HR WATER FLUSH 150 EVERY Q6H. POC IS DISCUSSED WILL CONTINUE TO FOLLOW.
[2021-03-29] MEDS: DOCUSATE 100 MG/10 ML UDC GT SCH ×2 (08:46→21:24)
[2021-03-29] MEDS: PANTOPRAZOLE 40 MG INJ VIAL IVP SCH (08:47)
[2021-03-29] MEDS: METOPROLOL 50 MG TAB GT SCH ×2 (08:49→21:24)
--- NOTE | 2021-03-29 11:40 | NUR ---
PT IS IN THE BED NO SOB NOTED, DAUGHTER IS PRESENT AT THE BED SIDE, ORAL CARE GIVEN AND SUCTIONED THE PT. PT DENIES PAIN AND DISCOMFORT. NO VISIBLE S/S OF PAIN NOTED. HEAD OF THE BED ELEVATED, CALL LIGHT IN REACH, BED IN LOWER POSITION, ALL SAFETY MEASURES ARE IN PLACED. WILL CONTINUE TO MONITOR PT.
--- NOTE | 2021-03-29 22:21 | NUR ---
PATIENT AWAKE ALERT HAS TRACH TO VENT RATE 12 FI02 28% PEEP5 SAT 100%. ON MONITOR SINUS HAS AC IN TIGHT BEND OF ARM NS 60 HOUR. LUNGS DIMINISH ABDOMEN SOFT NO RESIDUAL HAS GLUCERNIA INFUSING AT 40 HOUR RECEIVING WATER FLUSHES EVERY SIX HOURS. PATIENTS SKIN INTACT. NO SIGNS OF RESP. DISTRESS.
[2021-03-30] VITALS: BP 132/56
[2021-03-30] MEDS: ALBUTEROL SULFATE/IPRATROPIU 3 ML SOL IH SCH ×4 (00:17→19:15)
[2021-03-30] MEDS: NACL 0.9% 500 ML IV SCH (00:41)
[2021-03-30 04:00] VITALS: BP 107/39
[2021-03-30] MEDS: PIPERACILLIN/TAZOBACTAM 3.375 GM in DEXTROSE 5% 50 ML IV SCH ×5 (06:09→17:20)
[2021-03-30 06:29] LABS: BASOPHILS % (AUTO) 0.5 % (0.0-2.0); EOSINOPHILS # (AUTO) 0.8 K/uL (0-0.4); EOSINOPHILS % (AUTO) 9.7 % (0.0-4.0); HEMATOCRIT 26.1 % (36-48); HEMOGLOBIN 8.5 g/dL (12.0-16.0); LYMPHOCYTES # (AUTO) 1.6 K/uL (2.5-16.5); LYMPHOCYTES % (AUTO) 18.9 % (20.5-51.1); MEAN CORPUSCULAR HEMOGLOBIN 28 pg (27-31); MEAN CORPUSCULAR HGB CONC 33 g/dL (33-37); MEAN CORPUSCULAR VOLUME 85.8 fL (80-94); MONOCYTES # (AUTO) 0.7 K/uL (0.8-1.0); NEUTROPHILS # (AUTO) 5.2 K/uL (1.8-7.7); NEUTROPHILS % (AUTO) 62.9 % (42.2-75.2); PLATELET COUNT (AUTO) 217 K/uL (140-450); RED BLOOD CELL COUNT(AUTO) 3.04 MIL/uL (4.20-5.40); RED CELL DISTRIBUTION WIDTH 14.3 % (11.6-13.7); WHITE BLOOD COUNT (AUTO) 8.2 K/uL (4.8-10.8)
[2021-03-30 06:37] LABS: ANION GAP 6.7 (8-16); CARBON DIOXIDE 32.7 mmol/L (21-32); CHLORIDE 113 mmol/L (98-107); CREATININE 0.9 mg/dL (0.6-1.3); GLUCOSE 111 mg/dL (74-106); POTASSIUM 3.4 mmol/L (3.5-5.1); SODIUM SERUM 149 mmol/L (136-145); UREA NITROGEN, BLOOD 25 mg/dL (7-18)
--- NOTE | 2021-03-30 07:44 | NUR ---
RECEIVED REPORT FROM NIGHT NURSE, PT IS TRACH TO VENT PT. ALERT ORIENTED X 2 VERBALLY RESPONSIVE, SINUS RHYTHM, ON G TUBE FEEDING, GLUCERNA 1.2 @ 40 ML/HR. WATER FLUSH 150 Q 6 H. PT IS INCONTINENT FOR BOWEL AND BLADDER. ON CPAP SUPPORT FIO2 28, PEAP 5 PRESSURE SUPPORT 8. NO RESIDUAL IV ACCESS IS ON RIGHT AC 20 GAUGE, SKIN IS INTACT. POC IS DISCUSSED WILL CONTINUE TO CARRY ON.
[2021-03-30 08:00] VITALS: BP 112/44
[2021-03-30] MEDS: METOPROLOL 50 MG TAB GT SCH ×2 (08:57→20:50)
[2021-03-30] MEDS: DOCUSATE 100 MG/10 ML UDC GT SCH ×2 (08:57→20:48)
[2021-03-30] MEDS: PANTOPRAZOLE 40 MG INJ VIAL IVP SCH (08:57)
[2021-03-30] MEDS ORDERED: POTASSIUM CHL 20 MEQ/ 1/2 NS 1,000 ML IV ONE (09:25)
--- NOTE | 2021-03-30 10:01 | NUR ---
PT POTASSIUM WAS 3.4 NOTIFIED MD AND RECEIVED NEW ORDER OF POTASSIUM 20 MEQ IN 1/2 NS 1000ML. ADMINISTERED PER MD ORDER. PT IS ON LAP LAYER AT THE MOMENT. WILL CONTINUE TO ASSESS PT FOR CHANGE IN HEART RATE.
--- NOTE | 2021-03-30 11:40 | NUR ---
RECEIVED TORB FROM DR. SHAH TO CHANGE TUBE FEEDING FORMULA FROM GLUCERNA TO JEVITY 1.2 @ 55 ML/HR GOAL RATE. RN WAS ALSO NOTIFIED.
--- NOTE | 2021-03-30 13:43 | NUR ---
03/30/21 RD FOLLOW UP COMPLETED PLEASE REFER TO NUTRITION ASSESSMENT UNDER CARE ACTIVITY FOR ESTIMATED NUTRITIONAL NEEDS. 1. RECOMMENDED JEVITY 1.2 @ GOAL RATE 55 ML/HR X 24 HR. -THIS WILL PROVIDE 1584 KCAL AND 73.3 G PROTEIN, MEETING 100% OF ESTIMATED KCAL NEEDS AND 90% OF ESTIMATED KCAL NEEDS 2. CONTINUE FREE WATER FLUSH OF [address] TO FOLLOW-UP 2-3 DAYS, HIGH RISK AMY FLOWER RD
[2021-03-30 14:01] VITALS: BP 129/48
--- NOTE | 2021-03-30 15:15 | NUR ---
PATIENT LASTED ALL NIGHT ON CPAP 8. PATIENT WAS WEANED TO 5/5 AT BEGINNING OF SHIFT. PATIENT WAS THEN PLACED ON T-PIECE UP TO HUMIDIFIER. PATIENT HAS BEEN TOLERATING WELL. NO DISTRESS NOTED. PATIENT AWAKE ALERT AND TOLERATING CHANGE AT THIS TIME. WOULD RECOMMEND SPEECH THERAPY EVAL FOR POSSIBLE PASSY RAMANA VALVE PLACEMENT ALONG WITH A SWALLOW EVAL DOCUMENTATION.
--- NOTE | 2021-03-30 18:20 | NUR ---
RECEIVED REPORT FROM ESTELLA CRAIN FOR CONTINUITY OF CARE. PLAN OF CARE DISCUSSED.
--- NOTE | 2021-03-30 19:35 | NUR ---
RECEIVED REPORT FROM AM NURSE. PATIENT IS RESTING IN BED. TRACH TO T-PIECE. NO S/S OF RESPIRATORY DISTRESS. RESPIRATION EVEN UNLABORED. IVF 1/2NS WITH KCL 20 MEQ AT 60 ML. G-TUBE FEEDING JEVITY 1.2 RUNNING AT 55 ML. ALL SAFETY PRECAUTIONS ARE IN PLACE. CALL LIGHT WITHIN REACH. WILL CONTINUE TO MONITOR.
--- NOTE | 2021-03-30 20:48 | NUR ---
DUE MEDS GIVEN ORDERED.
--- NOTE | 2021-03-30 21:25 | NUR ---
SUCTIONED PATIENT NEEDED.
[2021-03-31] VITALS: BP 112/60
[2021-03-31] MEDS: ALBUTEROL SULFATE/IPRATROPIU 3 ML SOL IH SCH ×3 (00:59→13:45)
[2021-03-31] MEDS: PIPERACILLIN/TAZOBACTAM 3.375 GM in DEXTROSE 5% 50 ML IV SCH ×5 (06:05→17:59)
[2021-03-31 06:48] LABS: BASOPHILS % (AUTO) 0.7 % (0.0-2.0); EOSINOPHILS # (AUTO) 0.7 K/uL (0-0.4); EOSINOPHILS % (AUTO) 9.9 % (0.0-4.0); HEMATOCRIT 27.3 % (36-48); LYMPHOCYTES # (AUTO) 1.8 K/uL (2.5-16.5); LYMPHOCYTES % (AUTO) 26.9 % (20.5-51.1); MEAN CORPUSCULAR HEMOGLOBIN 28 pg (27-31); MEAN CORPUSCULAR HGB CONC 33 g/dL (33-37); MEAN CORPUSCULAR VOLUME 84.5 fL (80-94); MONOCYTES # (AUTO) 0.5 K/uL (0.8-1.0); MONOCYTES % (AUTO) 7.3 % (1.7-9.3); NEUTROPHILS # (AUTO) 3.7 K/uL (1.8-7.7); NEUTROPHILS % (AUTO) 55.2 % (42.2-75.2); PLATELET COUNT (AUTO) 240 K/uL (140-450); RED BLOOD CELL COUNT(AUTO) 3.23 MIL/uL (4.20-5.40); RED CELL DISTRIBUTION WIDTH 13.9 % (11.6-13.7); WHITE BLOOD COUNT (AUTO) 6.7 K/uL (4.8-10.8)
[2021-03-31 06:54] LABS: ANION GAP 8.2 (8-16); CARBON DIOXIDE 30.6 mmol/L (21-32); CHLORIDE 109 mmol/L (98-107); CREATININE 0.8 mg/dL (0.6-1.3); GLUCOSE 99 mg/dL (74-106); POTASSIUM 3.8 mmol/L (3.5-5.1); SODIUM SERUM 144 mmol/L (136-145); UREA NITROGEN, BLOOD 18 mg/dL (7-18)
--- NOTE | 2021-03-31 07:25 | NUR ---
RECEIVED REPORT FROM RESEARCH ATTORNEY NURSE. PATIENT IS RESTING IN BED. TRACH TO T-PIECE. NO S/S OF RESPIRATORY DISTRESS. RESPIRATION EVEN UNLABORED. IVF 1/2NS WITH KCL 20 MEQ AT 60 ML. G-TUBE FEEDING JEVITY 1.2 RUNNING AT 55 ML. ALL SAFETY PRECAUTIONS ARE IN PLACE. CALL LIGHT WITHIN REACH. WILL CONTINUE TO MONITOR
--- NOTE | 2021-03-31 07:35 | NUR ---
ENDORSED PATIENT TO AM NURSE FOR CONTINUITY OF CARE. PT IS IN STABLE CONDITION.
[2021-03-31] MEDS: NACL 0.45% 1,000 ML IV SCH (07:50)
[2021-03-31 08:00] VITALS: BP 132/68
[2021-03-31] MEDS: DOCUSATE 100 MG/10 ML UDC GT SCH (08:36)
[2021-03-31] MEDS: PANTOPRAZOLE 40 MG INJ VIAL IVP SCH (08:36)
[2021-03-31] MEDS: METOPROLOL 50 MG TAB GT SCH (08:37)
--- NOTE | 2021-03-31 09:20 | NUR ---
PT LAYING ON BED NO COMPLAINS, NO SOD NOTED, ALL SAFETY MEASURES ON PLACE, CALLS LIGHT WITHIN REACH
--- NOTE | 2021-03-31 09:40 | NUR ---
RECEIVED ON A COOL AEROSOL TO INLINE SUCTION CATHETER AT 60%/12 LPM SATURATION 98% VENTILATOR STANDBY GOOD CHEST RISE DEEP TRACHEAL SUCTION FOR MODERATE SEMI THICK YELLOW SECRETIONS POST HHN THERAPY TITRATED FIO2 TO 40%/10 LPM CLINICAL TEAM LEAD TO MONITOR AND TITRATED FIO2 TOLERATED WISAL/RN NOTIFIED
--- NOTE | 2021-03-31 11:12 | NUR ---
DC PLANNING: CM SPOKE WITH THE PATIENTS SON CHANTELL BY PHONE. THE PATIENT HAS BEEN AT [facility] FOR ABOUT SIX MONTHS BECAUSE OF COMPLICATIONS OF COVID. THE PATIENT IS TRACH TO VENT BUT IS ABLE TO MAKE HER NEEDS KNOWN. SHE IS TOTAL CARE BUT HAS STARTED TO MOVE HER EXTREMITIES SOMEWHAT. THE SON EXPRESSED CONCERN THAT THE PATIENT HAS NOT STARTED VENT WEANING AT [facility], CM WILL SPEAK WITH THE FACILITY ABOUT THIS. CHANTELL IS IN AGREEMENT WITH THE PATIENT RETURNING TO [facility] WHEN SHE IS CLINICALLY STABLE, CM WILL FOLLOW FOR NEEDS. Addendum: 03/31/21 at 1320 by Cassandra Villa CM DC PLANNING: DC ORDER RECEIVED, CLINICALS FAXED TO [facility], ROOM 2B ASSIGNED. SPOKE WITH GARETH AT [facility] ABOUT THE CONCERNS THE PATIENTS SON EXPRESSED ABOUT WEANING AND EXTUBATION, SHE STATES SHE WILL HAVE THE FIRST ASSISTANT MANAGER CALL HIM TO ADDRESS HIS CONCERNS. THE PATIENT WILL BE PICKED UP BY [facility] AT 5:00 PM, ALS LEVEL, THE PATIENTS RN WEST WAS NOTIFIED AND FACILITY INFORMATION GIVEN TO HER. THE PATIENT WILL AGAIN BE FOLLOWED BY DR HIRSCH. [place] ALSO SPOKE WITH THE PATIENTS DIONISIO ABDUL TO NOTIFY HIM OF THE DC AND STRIP POLISHER TIME. CM WILL FOLLOW FOR NEEDS. Addendum: 03/31/21 at 1606 by Cassandra Villa CM DC PLANNING: [place] RECEIVED A CALL FROM NURSING AT [facility], ASKED THAT THE PATIENT BE PICKED UP AT 1900 INSTEAD OF 1700 BECAUSE OF STAFFING ISSUES. TIME CHANGED WITH [facility], [place] NOTIFIED SUSHMA CHARGE NURSE OF TIME CHANGE. [place] WILL FOLLOW FOR NEEDS.
--- NOTE | 2021-03-31 11:25 | NUR ---
PT SITTING ON BED NO COMPLAINS, NO SOD NOTED, ALL SAFETY MEASURES ON PLACE, CALLS LIGHT WITHIN REACH
--- NOTE | 2021-03-31 13:15 | NUR ---
PT SITTING ON BED NO COMPLAINS, NO SOD NOTED, FAMILY MEMBER NEXT TO PT BED .ALL SAFETY MEASURES ON PLACE, CALLS LIGHT WITHIN REACH
--- NOTE | 2021-03-31 15:20 | NUR ---
PT SITTING ON BED NO COMPLAINS, NO SOD NOTED, FAMILY MEMBER NEXT TO PT BED PT SHOULD BE DISCHARGED TO [facility] DESIZING MACHINE BACK TENDER TIME AT 7PM .ALL SAFETY MEASURES ON PLACE, CALLS LIGHT WITHIN REACH
[2021-03-31 16:00] VITALS: BP 126/56
--- NOTE | 2021-03-31 17:25 | NUR ---
PT SITTING ON BED NO COMPLAINS, NO SOD NOTED, FAMILY MEMBER NEXT TO PT BED .ALL SAFETY MEASURES ON PLACE, CALLS LIGHT WITHIN REACH
== END 2021-03-31 20:15 | DRG 720 ==
LOC: MED 11:31 → MTU 16:47
PROVIDERS: ADMIT Hospitalist; ATTEND Hospitalist
PROC: 5A1945Z Respiratory Ventilation, 24-96 Consecutive Hours (ICD-10-PCS; principal; 2021-03-27)
DX: A41.9 Sepsis, unspecified organism (principal); J96.21 Acute and chronic respiratory failure with hypoxia; J69.0 Pneumonitis due to inhalation of food and vomit; G93.41 Metabolic encephalopathy; E44.1 Mild protein-calorie malnutrition; D63.8 Anemia in other chronic diseases classified elsewhere; E87.0 Hyperosmolality and hypernatremia; N39.0 Urinary tract infection, site not specified; Z20.822 Contact with and (suspected) exposure to COVID-19; J44.9 Chronic obstructive pulmonary disease, unspecified; R65.20 Severe sepsis without septic shock; I10 Essential (primary) hypertension; E87.6 Hypokalemia; R13.10 Dysphagia, unspecified; K21.9 Gastro-esophageal reflux disease without esophagitis; Z86.16 Personal history of COVID-19; Z93.1 Gastrostomy status; Z93.0 Tracheostomy status; Z68.22 Body mass index [BMI] 22.0-22.9, adult; Z79.899 Other long term (current) drug therapy
CPT/HCPCS: 36415; 71045; 80048; 80053; 81001; 83690; 83735; 83880; 84100; 84484; 85025; 87081; 87086; 93005; 94002; 94003; 94640; 96360; 96361; 99285; C9113; J2001; J2543; J3480; J7030; J7060; Q0092